=== PATIENT | female | born 1970 | race African-American/Black ===

== ENCOUNTER 2018-03-21 07:48 | Day surgery (SDC) | payer OTHER ==
--- OUTSIDE RECORDS SUMMARY | 2018-03-21 07:50 | XMS REPORT ---
:1970 Author Organization eClinicalWorks Care Team Providers Name Role Phone Deb Valdez Provider Role Unavailable Allergies No Known Allergies Problems Problem Type Condition Code Onset Dates Condition Status Problem History of delivery Z98.891 Active Problem Asthma, unspecified asthma J45.909 Active severity, unspecified whether complicated, unspecified whether persistent Problem Menorrhagia with regular cycle N92.0 Active Problem Essential (primary) hypertension I10 Active Problem History of tubal ligation Z98.51 Active Problem BMI 38.0-38.9,adult Z68.38 Active Problem History of anemia Z86.2 Active Problem Submucous leiomyoma of uterus D25.0 Active Medications No Known Medications Results No Known Results Summary Purpose eClinicalWorks Submission
--- OUTSIDE RECORDS SUMMARY | 2018-03-21 07:50 | XMS REPORT ---
:1970 Author Organization eClinicalWorks Care Team Providers Name Role Phone Deb Valdez Provider Role Unavailable Allergies, Adverse Reactions, Alerts Substance Reaction Event Type N.K.D.A. Info Not Available Non Drug Allergy Problems Problem Type Condition Code Onset Dates Condition Status Assessment Menorrhagia with regular cycle N92.0 Active Problem History of delivery Z98.891 Active Assessment Submucous leiomyoma of uterus D25.0 Active Problem Asthma, unspecified asthma J45.909 Active severity, unspecified whether complicated, unspecified whether persistent Problem Menorrhagia with regular cycle N92.0 Active Problem Essential (primary) hypertension I10 Active Problem History of tubal ligation Z98.51 Active Problem BMI 38.0-38.9,adult Z68.38 Active Problem History of anemia Z86.2 Active Problem Submucous leiomyoma of uterus D25.0 Active Assessment History of tubal ligation Z98.51 Active Assessment History of delivery Z98.891 Active Assessment BMI 38.0-38.9,adult Z68.38 Active Assessment History of anemia Z86.2 Active Medications Medication Code Code Instructions Start End Status Dosage System Date Date Montelukast [facility] 73223367746 10 MG Orally Active not Sodium defined Hyzaar [facility] 04514142166 100-25 MG Orally Active 1 tablet Once a day Results No Known Results Summary Purpose eClinicalWorks Submission
[2018-03-21] MEDS ORDERED: Ringers Lactate 1,000 ML IV ONE (08:34)
[2018-03-21] MEDS ORDERED: PROPOFOL 200 MG/20 ML VIAL IV ONE (08:37)
[2018-03-21] MEDS ORDERED: MIDAZOLAM HCL 2 MG/2 ML INJ ONE (08:38)
[2018-03-21] MEDS ORDERED: FENTANYL CITR 100 MCG/2 ML ONE (08:38)
[2018-03-21] MEDS ORDERED: NA CHLORIDE 0.9% 1,000 ML ONE (08:45)
[2018-03-21 08:48] VITALS: TEMP 97.9
[2018-03-21] MEDS: LIDOCAINE 1% W/EPI 1:100,000 MDV 50 ML VIAL ONE ×2 (09:10→09:32)
[2018-03-21] MEDS ORDERED: KETOROLAC 30 MG/ML INJ ONE (09:27)
[2018-03-21 11:57] VITALS: BP 109/54; O2SAT 98
--- NOTE | 2018-03-21 20:31 | OP ---
Date of Procedure: 03/21/2018 Surgeon: Leatha Mujica MD Preoperative Diagnoses: Abnormal uterine bleeding with large fibroids. Failed attempt to do an endo metrial office biopsy due to the fibroids. Postoperative Diagnoses: Abnormal uterine bleeding with large fibroids. Failed attempt to do an end ometrial office biopsy due to the fibroids (AUB-L). Procedures Performed: Hysteroscopy, dilation and curettage. Anesthesia: MAC plus paracervical block. Specimens: Endometrial curettings. Complications: None. Drains: None. Findings: Cavity sounded to 12 cm. Uterus about 14-16 week size. Description Of Procedure: After informed consent was verified, the patient was brought to the OR, pl aced in a supine fashion on the operating table. After MAC was given, she was placed in dorsal litho adelfo position using Alexis stirrups. A speculum was placed to expose the cervix. Anterior lip inject ed with 1% lidocaine mixed with 1:100,000 epinephrine and 10 cc was given here and then 5 cc each at 4 and 8 o'clock positions at the cervicovaginal junction. Two Allis clamps were used to grasp anteri or lip of the cervix. Prep x3 with Betadine was done. Diagnostic SlimLine hysteroscope was used to traverse the cervical canal under direct visualization with a slight turned down and up to get into t he uterine cavity. The cavity was empty. The lining way was thickened, but no irregularity seen. B oth tubal ostia were visualized. Scope removed endometrial curettings were performed with a #2 curet te. Adequate sampling was performed. This was handed out for permanent pathology. All the instrume nts removed. Instrument, needle, and sponge counts were correct at the end of the case. The patient given Toradol. She was taken to the recovery room in stable condition. [facility] and she will follow up with me in 1 week. RODRIGUEZ/EWELINA Voice ID: [id number] Report ID: [id number]
== END 2018-03-21 10:25 | disposition home or self-care (01) ==
LOC: OR 07:48
PROVIDERS: ATTEND Obstetrics & Gynecology
PROC: 0UJD8ZZ Inspection of Uterus and Cervix, Via Natural or Artificial Opening Endoscopic (ICD-10-PCS; 2018-03-21)
PROC: 0UDB7ZX Extraction of Endometrium, Via Natural or Artificial Opening, Diagnostic (ICD-10-PCS; principal; 2018-03-21 09:30)
DX: N92.0 Excessive and frequent menstruation with regular cycle (principal); D25.1 Intramural leiomyoma of uterus; D50.0 Iron deficiency anemia secondary to blood loss (chronic); I10 Essential (primary) hypertension; J45.909 Unspecified asthma, uncomplicated; Z83.3 Family history of diabetes mellitus; Z82.49 Family history of ischemic heart disease and other diseases of the circulatory system
CPT/HCPCS: 81025; 88305; J2250; J3010; J7030

== ENCOUNTER 2018-04-25 05:47 | Inpatient (IN) | payer OTHER ==
[2018-04-23 17:34] LABS: Absolute Lymphocytes (CBC) 1.7 K/uL (0.7-4.9); Absolute Monocytes 0.7 K/uL (0.1-1.3); Absolute Neutrophil 5.9 K/uL (1.8-8.0); Basophils % 0.4 % (0-1.3); Eosinophils % 1.6 % (0-4.4); Hematocrit 38.1 % (36.0-45.0); Lymphocytes % 19.9 % (15.3-44.8); MCH 27.9 pg (27.0-35.0); MCV 86.4 fL (80-100); MPV 7.5 fL (7.6-11.3); Monocytes % 8.5 % (3.3-12.3); RBC Red Blood Cell Count 4.41 M/uL (3.86-4.86)
[2018-04-23 17:47] LABS: Potassium 3.7 mEq/L (3.6-5.0)
--- OUTSIDE RECORDS SUMMARY | 2018-04-25 05:57 | XMS REPORT ---
[...] End Status Dosage System Date Date Montelukast [facility] [id number] 10 MG Orally Active not Sodium defined Hyzaar [facility] [id number] 100-25 MG Orally Active 1 tablet Once a day Results No Known Results Summary Purpose eClinicalWorks Submission
--- OUTSIDE RECORDS SUMMARY | 2018-04-25 05:57 | XMS REPORT ---
:1970 Author Organization eClinicalWorks Care Team Providers Name Role Phone Deb Valdez Provider Role Unavailable Allergies, Adverse Reactions, Alerts Substance Reaction Event Type N.K.D.A. Info Not Available Non Drug Allergy Problems Problem Type Condition Code Onset Dates Condition Status Assessment Submucous leiomyoma of uterus D25.0 Active Problem History of delivery Z98.891 Active Assessment Pre-op exam Z01.818 Active Problem Asthma, unspecified asthma J45.909 Active severity, unspecified whether complicated, unspecified whether persistent Problem Essential (primary) hypertension I10 Active Problem BMI 39.0-39.9,adult Z68.39 Active Problem Submucous leiomyoma of uterus D25.0 Active Problem History of tubal ligation Z98.51 Active Problem Menorrhagia with regular cycle N92.0 Active Problem History of anemia Z86.2 Active Assessment Asthma, unspecified asthma J45.909 Active severity, unspecified whether complicated, unspecified whether persistent Assessment Essential (primary) hypertension I10 Active Assessment History of anemia Z86.2 Active Assessment BMI 39.0-39.9,adult Z68.39 Active Assessment Menorrhagia with regular cycle N92.0 Active Medications Medication Code Code Instructions Start End Status Dosage System Date Date Hyzaar [facility] [id number] 100-25 MG Orally Active 1 tablet Once a day Montelukast [facility] 95553399743 10 MG Orally Active not Sodium defined Results No Known Results Summary Purpose eClinicalWorks Submission
[2018-04-25] MEDS ORDERED: CEFAZOLIN/SWI 2gm 2 GM/20 ML SYR IV SCH (06:00)
[2018-04-25] MEDS ORDERED: Ringers Lactate 1,000 ML IV ONE (06:11)
[2018-04-25] MEDS ORDERED: NA CHLORIDE 0.9% 1,000 ML ONE (06:46)
[2018-04-25] MEDS ORDERED: ROCURONIUM 50 MG/5 ML VIAL IV ONE ×2 (06:47→08:36)
[2018-04-25] MEDS ORDERED: PROPOFOL 200 MG/20 ML VIAL IV ONE (06:47)
[2018-04-25] MEDS ORDERED: GLYCOPYRROLATE 0.2 MG/ML SYR ONE ×2 (06:48)
[2018-04-25] MEDS ORDERED: FENTANYL CITR 250 MCG/5 ML ONE ×2 (06:49→08:44)
[2018-04-25] MEDS ORDERED: LIDOCAINE 2% MPF 5 ML VIAL ONE (06:49)
[2018-04-25] MEDS ORDERED: ONDANSETRON HCL 40 MG/20 ML VIAL ONE (06:50)
[2018-04-25] MEDS ORDERED: NEOSTIGMINE 1 MG/ML -5 ML SYRINGE ONE (06:52)
[2018-04-25] MEDS ORDERED: MIDAZOLAM HCL 2 MG/2 ML INJ ONE (07:04)
[2018-04-25] MEDS ORDERED: SCOPOLAMINE HYDROBROMIDE PATCH TD ONE (07:04)
[2018-04-25] MEDS ORDERED: MORPHINE 10 MG/ML VIAL ONE (07:31)
[2018-04-25] MEDS ORDERED: DEXAMETHASONE 10 MG/ML VIAL ONE (08:00)
[2018-04-25] MEDS: VASOPRESSIN 20 UNIT/ML VIAL ONE ×2 (08:02→08:13)
[2018-04-25] MEDS: NA CHLORIDE 0.9% 1,000 ML ONE ×2 (09:11→09:20)
[2018-04-25] MEDS ORDERED: HYDRALAZINE HCL 20 MG/ML VIAL ONE (09:46)
[2018-04-25] MEDS ORDERED: IBUPROFEN 200 MG TAB PO PRN (11:00)
[2018-04-25] MEDS ORDERED: HYDROMORPHONE HCL 1 MG/ML INJ IV PRN (11:00)
[2018-04-25] MEDS ORDERED: ONDANSETRON 4 MG/2 ML VIAL IV PRN (11:00)
[2018-04-25] MEDS: MEPERIDINE HCL 50 MG/ML AMP ONE ×2 (11:20→11:28)
[2018-04-25 13:16] VITALS: O2SAT 97
[2018-04-25] MEDS ORDERED: MORPHINE 4 MG/ML SYR IV ONE (14:40)
[2018-04-25] MEDS ORDERED: KETOROLAC 30 MG/ML INJ ONE (15:57)
[2018-04-25] MEDS: METOCLOPRAMIDE 10 MG/2mL INJ IV SCH ×2 (16:00→20:13)
[2018-04-25] MEDS: Ringers Lactate 1,000 ML IV SCH ×2 (16:00→20:13)
[2018-04-25] MEDS ORDERED: KETOROLAC 30 MG/ML INJ IV ONE (16:00)
[2018-04-25] MEDS ORDERED: DIPHENHYDRAMINE 50 MG/ML VIAL IV PRN (17:44)
--- NOTE | 2018-04-25 17:47 | P.OP ---
Beaver Trapper: Leatha Mujica Preoperative diagnosis: Uterine fibroids, Menorrhagia, Pelvic pain Postoperative diagnosis: Same Primary procedure: OSMAN Secondary procedure: B/L salpingectomy Anesthesia: General Estimated blood loss: 300 cc Specimen: Uterus, cervix, B/L Fallopian tubes Findings: See operative report Operative Technique: Findings: Normal appearing external genitalia and vagina, with limited views cervix due to displacing fibroids. Large, globular, but mobile uterus noted on bimanual exam. Ovaries not palpable. Anterior low uterine segment fibroids on left ~6 cm. Another enlarged 6-7 cm posterior lateral fibroid on right. Multiple other subserosal and intramural fibroids noted. Unremarkable fallopian tubes (post-ligation changes noted) and ovaries bilaterally. Adhesions present at vesicouterine peritoneum. Normal appearing bowel and omentum. Procedure Details: The patient was seen in Pre-operative holding area. The risks, benefits, complications, treatment options, and expected outcomes were discussed with the patient. The patient concurred with the proposed plan, confirming informed consent. The site of surgery properly noted/marked. The patient was taken to Operating Room, identified as Aiden Betancur and the procedure verified as Total abdominal hysterectomy. A Time Out was held and the above information confirmed. After induction of anesthesia, the patient was draped and prepped in the usual sterile manner. A "[place]" time-out was conducted. A Dsouza catheter was placed. An infra-umbilical vertical midline skin incision was made and carried through the subcutaneous tissue to the fascia with the scalpel. Fascial incision was made and extended superiorly and inferiorly using the Bovie. The rectus muscles were . The peritoneum was identified and entered with good visualization of the bladder and bowel. Peritoneal incision was extended longitudinally. Bookwalter self retaining retractor was placed and bowel was packed away from the surgical site.The uterus did not deliver well through the incision on initial attempt. Decison was made to change abdominal retractor to a self retaining Lincoln-O retractor. Bowel was packed away and better visualization was obtained. A stay suture was placed and the uterus was gently elevated. The round ligaments were identified, and doubly ligated with 0-Vicryl and cut. The anterior peritoneal reflection was incised and the bladder was dissected off the lower uterine segment, carefully lysing adhesions sharply. The retroperitoneal space was explored and fibroids noted as described above. The ureters were palpated bilaterally. The right utero-ovarian ligament and proximal fallopian tube were grasped, cauterized and cut using the LigaSure device. The left utero-ovarian ligament and proximal fallopian tube were also grasped, cauterized, and cut in a similar fashion. Hemostasis was observed. The uterine vessels were skeletonized, then clamped, cut and suture ligated with 0-Vicryl suture. Serial pedicles of the cardinal and utero-sacral ligaments were clamped cauterized and cut with the LigaSure device bilaterally to the level of the cervix. At this point, transection was done using the knife to remove the uterus and decrease intra-operative bulking effect. Cervix was grasped with kocker clamps anteriorly and posteriorly to elevate it and trachelectomy was done by serially clamping and cutting using curved Dayron clamps. This was done until the cervix was removed and entrance was made into the vagina. Vaginal cuff angle sutures were held and vicryl was used to place figure of 8 sutures until vaginal roderick was closed. Lavage was carried out until clear. Hemostasis was observed. The Fallopian tubes were removed bilaterally using the LigaSure. Hemostasis was noted. This concluded the case. Retractor and all packing was removed from the abdomen. The peritoneum was re- approximated using 2-0-vicryl suture in a continuous, running fashion. Mass abdominal closure was done using 1-Looped PDS. Lavage was again carried out. Hemostasis was observed. The skin was approximated using maricruz. An occlusive dressing was applied. Instrument, sponge, and needle counts were correct prior to abdominal closure and at the conclusion of the case.The patient tolerated the procedure well and there were no complications. She was taken to the recovery room in good condition. Complications: None Drain(s): Urinary catheter Implants: None Fluids & blood products: Per anesthesia Transferred to: Recovery Room Condition: Good
[2018-04-25 18:12] VITALS: BMI 39.0
[2018-04-25] MEDS: KETOROLAC 30 MG/ML INJ IV SCH (20:13)
[2018-04-25] MEDS: ACETAMINOPHEN 500 MG TAB PO PRN (22:42)
[2018-04-26] MEDS: KETOROLAC 30 MG/ML INJ IV SCH ×2 (02:00→09:29)
[2018-04-26] MEDS: Ringers Lactate 1,000 ML IV SCH ×2 (03:00→08:03)
[2018-04-26 05:38] LABS: BUN Blood Urea Nitrogen 7 mg/dL (6-20); Bicarbonate 23 mEq/L (21-31); Glucose Level 109 mg/dL (65-120); Potassium 3.6 mEq/L (3.6-5.0); Sodium Level 134 mEq/L (135-145)
[2018-04-26 05:44] LABS: Absolute Lymphocytes (CBC) 1.3 K/uL (0.7-4.9); Absolute Monocytes 1.4 K/uL (0.1-1.3); Absolute Neutrophil 11.6 K/uL (1.8-8.0); Basophils % 0.3 % (0-1.3); Hematocrit 33.6 % (36.0-45.0); Lymphocytes % 9.1 % (15.3-44.8); MCH 29.3 pg (27.0-35.0); MCV 85.2 fL (80-100); MPV 7.6 fL (7.6-11.3); Monocytes % 9.5 % (3.3-12.3); RBC Red Blood Cell Count 3.94 M/uL (3.86-4.86)
[2018-04-26] MEDS: METOCLOPRAMIDE 10 MG/2mL INJ IV SCH ×3 (06:00→09:29)
[2018-04-26] MEDS: ACETAMINOPHEN 500 MG TAB PO PRN (08:02)
--- NOTE | 2018-04-26 08:36 | P.PN ---
Subjective Date of Service: 04/30/18 Chief Complaint: S/p hysterectomy Subjective: Tolerating diet, Ambulating, Improving, Doing well C/o pain with getting up and trying to move around, but improving. Review of Systems 10-point ROS is otherwise unremarkable Physical Examination - Vital Signs Temperature: 98.5 F Blood Pressure: 127/75 Pulse: 94 Respirations: 14 Pulse Ox (%): 97 - Physical Exam General: Alert, In no apparent distress, Oriented x3 Respiratory: Rhonchi/gurgles Cardiovascular: Regular rate/rhythm, Normal S1 S2 Gastrointestinal: Hypoactive, Soft and benign, Non-distended, No rebound, No guarding, Other (Dressing: C/D/I) Musculoskeletal: No erythema, No tenderness, Swelling (B/L tracel pedal edema) Integumentary: No rashes, No breakdown Neurological: Normal speech, Normal strength at 5/5 x4 extr - Studies Laboratory Data (last 24 hrs) 04/26/18 04:40: Sodium 134 L, Potassium 3.6, BUN 7, Creatinine 0.82, Glucose 109 04/26/18 04:40: WBC 14.3 H D, Hgb 11.5 L, Hct 33.6 L, Plt Count 370 Assessment And Plan - Current Problems (Diagnosis) (1) H/O abdominal hysterectomy Status: Acute Plan: Patient is doing well on postop day 1 status post abdominal hysterectomy. Encouraged her to ambulate. Slowly continue to advance diet as tolerated and d/ c IVF when tolerating. D/c forrester catheter. UOP has been WNL. Will work on improving pain control. Vitals/labs reviewed. (2) Leukocytosis, unspecified Status: Acute Plan: Pt is afebrile. No tachycardia noted. No signs of infection. Will monitor. Qualifiers: Leukocytosis type: bandemia Qualified Code(s): D72.825 - Bandemia
[2018-04-26] MEDS ORDERED: ONDANSETRON 4 MG (ODT) TAB PO PRN (09:20)
[2018-04-26] MEDS ORDERED: HYDROCODONE/APAP 5/325 MG TAB PO PRN (09:20)
[2018-04-26] MEDS ORDERED: DIPHENHYDRAMINE 25 MG TAB/CAP PO PRN (09:24)
--- OUTSIDE RECORDS SUMMARY | 2018-04-26 11:26 | XMS REPORT ---
[...] End Status Dosage System Date Date Hyzaar [facility] 60826480758 100-25 MG Orally Active 1 tablet Once a day Montelukast [facility] 10292207528 10 MG Orally Active not Sodium defined Results No Known Results Summary Purpose eClinicalWorks Submission
--- OUTSIDE RECORDS SUMMARY | 2018-04-26 11:26 | XMS REPORT ---
[...] Date Montelukast [facility] 00563505681 10 MG Orally Active not Sodium defined Hyzaar [facility] 06964725921 100-25 MG Orally Active 1 tablet Once a day Results No Known Results Summary Purpose eClinicalWorks Submission
--- OUTSIDE RECORDS SUMMARY | 2018-04-26 11:57 | XMS REPORT ---
[...] End Status Dosage System Date Date Hyzaar [facility] [place] 2[place] 96038665328 100-25 MG Orally Active 1 tablet Once a day Montelukast [facility] [place] 2[place] 32857707971 10 MG Orally Active not Sodium defined Results No Known Results Summary Purpose eClinicalWorks Submission
--- OUTSIDE RECORDS SUMMARY | 2018-04-26 11:57 | XMS REPORT ---
[...] End Status Dosage System Date Date Montelukast [facility] 26488620471 10 MG Orally Active not Sodium defined Hyzaar [facility] 02428119528 100-25 MG Orally Active 1 tablet Once a day Results No Known Results Summary Purpose eClinicalWorks Submission
[2018-04-26] MEDS ORDERED: ALBUTEROL INHALER 60 PUFF/8 GM IH PRN (12:09)
[2018-04-26] MEDS: METOCLOPRAMIDE 5 MG TAB PO SCH ×3 (13:00→22:37)
[2018-04-26] MEDS: IBUPROFEN 400 MG TAB PO PRN (15:32)
[2018-04-27] MEDS: IBUPROFEN 400 MG TAB PO PRN (00:08)
[2018-04-27] MEDS: HYDROCODONE/APAP 5/325 MG TAB PO PRN ×2 (04:55→16:46)
[2018-04-27] MEDS: METOCLOPRAMIDE 5 MG TAB PO SCH ×2 (05:06→13:00)
[2018-04-27 06:31] LABS: Absolute Lymphocytes (CBC) 2.5 K/uL (0.7-4.9); Absolute Monocytes 0.7 K/uL (0.1-1.3); Absolute Neutrophil 5.5 K/uL (1.8-8.0); Basophils % 0.9 % (0-1.3); Hematocrit 32.5 % (36.0-45.0); Lymphocytes % 28.1 % (15.3-44.8); MCH 29.2 pg (27.0-35.0); MPV 7.8 fL (7.6-11.3); Monocytes % 7.7 % (3.3-12.3); RBC Red Blood Cell Count 3.78 M/uL (3.86-4.86)
--- NOTE | 2018-04-27 08:35 | P.DS ---
Admission Date: 04/25/18 Discharge Date: 04/30/18 Disposition: ROUTINE DISCHARGE Comment: Rounding with D/c summary Discharge Condition: GOOD Reason for Admission: Scheduled abdominal hysterectomy - Problems (1) H/O abdominal hysterectomy Status: Acute (2) Leukocytosis, unspecified Status: Acute Qualifiers: Leukocytosis type: bandemia Qualified Code(s): D72.825 - Bandemia Brief History of Present Illness: Patient was admitted to undergo scheduled hysterectomy due to a long history of uterine fibroids, menorrhagia, and pelvic pain. Planned approach via laparotomy. Hospital Course: Patient was admitted for scheduled surgery which was done without incident. Her postop recovery course has been unremarkable. Patient is ambulating, tolerating intake, having normal spontaneous voids and has improved pain control on postop day 2. She is passing flatus. H&H is appropriate. Vitals signs WNL. Leukocytosis is resolved, likely stress reaction. Lungs sounds now clear with incentive spiromete use. She is stable for discharge home on postop day 3. Will pre-discharge for tomorrow. Vital Signs/Physical Exam: Temp Pulse Resp BP Pulse Ox 97.8 F 80 16 133/73 97 04/27/18 07:23 04/27/18 07:23 04/27/18 07:23 04/27/18 07:23 04/26/18 16:00 General: Alert, In no apparent distress, Oriented x3 HEENT: Atraumatic, Normocephalic Respiratory: Clear to auscultation bilaterally, Normal air movement Cardiovascular: Regular rate/rhythm, Normal S1 S2 Gastrointestinal: Normal bowel sounds, Soft and benign, Non-distended, No tenderness, No rebound, Other (Anabela intact. No signs of infection or dehiscence.) Musculoskeletal: No swelling, No erythema, No tenderness Integumentary: No rashes, No breakdown Neurological: Normal speech, Normal strength at 5/5 x4 extr Laboratory Data at Discharge: WBC 8.9 K/uL (4.3-10.9) D 04/27/18 05:15 Hgb 11.1 g/dL (12.0-15.0) L 04/27/18 05:15 Hct 32.5 % (36.0-45.0) L 04/27/18 05:15 Plt Count 351 K/uL (152-406) 04/27/18 05:15 Sodium 134 mEq/L (135-145) L 04/26/18 04:40 Potassium 3.6 mEq/L (3.6-5.0) 04/26/18 04:40 BUN 7 mg/dL (6-20) 04/26/18 04:40 Creatinine 0.82 mg/dL (0.44-1.00) 04/26/18 04:40 Glucose 109 mg/dL (65-120) 04/26/18 04:40 Home Medications: Albuterol Sulfate [Proair Hfa] 8.5 gm IH PRN PRN 03/18/18 Cetirizine HCl [All Day Allergy] 10 mg PO DAILY 03/18/18 Ferrous Sulfate [Ferrous Sulfate*] 325 mg PO DAILY 03/18/18 Losartan/Hydrochlorothiazide [Losartan-Hctz 100-12.5 mg Tab] 1 each PO [id number] 03/18/18 Montelukast Sodium [Singulair] 10 mg PO DAILY 03/18/18 Hydrocodone 5/APAP 325 [Arbon 5/325*] 1 tab PO Q4H PRN #20 tab 04/27/18 Ibuprofen 800 mg PO Q8H PRN #45 tablet 04/27/18 New Medications: Hydrocodone 5/APAP 325 [Arbon 5/325*] 1 tab PO Q4H PRN #20 tab PRN Reason: Pain Ibuprofen 800 mg PO Q8H PRN #45 tablet PRN Reason: Abdominal Pain Patient Discharge Instructions: Complete pelvic rest for 6 weeks. Notify physician of bleeding, fever/chills, or the signs of infection. Follow-up in 1 week for staple removal Diet: Regular Activity: No lifting more than 10 lbs Followup: Deb Valdez MD [ACTIVE - CAN ADMIT] -
[2018-04-27] MEDS ORDERED: MONTELUKAST 10 MG TAB PO SCH (09:00)
[2018-04-27] MEDS ORDERED: hydroCHLOROthiazide 12.5 MG CAP PO SCH (09:00)
[2018-04-27] MEDS ORDERED: LOSARTAN POTASSIUM 50 MG TABLET PO SCH (09:00)
[2018-04-28] MEDS: HYDROCODONE/APAP 5/325 MG TAB PO PRN (04:55)
[2018-04-28] MEDS: METOCLOPRAMIDE 5 MG TAB PO SCH ×2 (07:00)
--- NOTE | 2018-04-29 09:10 | PREOPHP ---
Date of Admission: 04/25/2018 History: A 21-year-old, 4, para 3, all previous C-sections. No care. Dropped into our institution by her dates, 39 weeks and 2 days, and in labor. She is now 2-1/2 cm, 70% effaced, vertex presenting. Ultrasound demonstrates an anterior placenta, but no signs of placenta accreta or placenta previa. She has not eaten since 9 o'clock last night. She started nitesh about 4 chad rs ago and is nitesh regularly at this time. Baby looks good on the monitor. Past Family History: Noncontributory. Allergies: THE PATIENT HAS NO ALLERGIES. Social History: She says she does not smoke, but she has not seen anyone during this , so darion rao will get a drug screen. Physical Examination: Vital Signs: Normal. HEENT: Clear. Pupils reactive to light and accommodation. Chest and Lungs: Clear. Heart: Without murmurs. Breasts: Not examined. Abdomen: Small, but the last baby only weighed 6 pounds, and this baby looks about the same. Extremities: Clear without edema, cyanosis, or clubbing. Impression: Essentially healthy female, 39 weeks 2 days, repeat section, in labor. TRAM/EWELINA Voice ID: [id number]
[2018-04-30 10:12] VITALS: BP 127/75; TEMP 98.5
== END 2018-04-28 08:50 | disposition home or self-care (01) | DRG 743 ==
LOC: OP 05:47 → OR 05:47 → EDSTATUS 07:30 → 2ND-WC 11:30 → OR 11:30
PROVIDERS: ADMIT Obstetrics & Gynecology; ATTEND Obstetrics & Gynecology
PROC: 0UT70ZZ Resection of Bilateral Fallopian Tubes, Open Approach (ICD-10-PCS; 2018-04-25)
PROC: 0UT90ZZ Resection of Uterus, Open Approach (ICD-10-PCS; principal; 2018-04-25 07:00)
DX: D25.0 Submucous leiomyoma of uterus (principal); D72.825 Bandemia; N92.0 Excessive and frequent menstruation with regular cycle; R10.2 Pelvic and perineal pain; D25.1 Intramural leiomyoma of uterus; D25.2 Subserosal leiomyoma of uterus; I10 Essential (primary) hypertension; J45.909 Unspecified asthma, uncomplicated
CPT/HCPCS: 36415; 80048; 81025; 85025; 86850; 86900; 86901; 88305; 88307; J0360; J0690; J1100; J2175; J2250; J2405; J2710; J2765; J7030